=== PATIENT | male | born 1985 | race Caucasian/White ===

== ENCOUNTER 2017-02-24 12:08 | Emergency (ER) | payer SELFPAY ==
[~2017-02-24 12:08] MED LIST: CYCL5TAB PO; IBUP600T26 PO
[2017-02-24 12:23] VITALS: BP 127/81; TEMP 99.4; O2SAT 96
--- NOTE | 2017-02-24 12:33 | PD ---
HPI Chief Complaint: Alcohol/Drug Intoxication Time Seen by Provider: 12:15 Travel History International Travel<30 days: No Contact w/Intl Traveler<30days: No Traveled to known affect area: No History of Present Illness HPI The patient is a 31-year-old male who presents to the emergency department via police as a [place] act. The patient apparently was found [place] on [address], the police state that the patient appeared to fall asleep easily and had the lean against objects to stay upright. The patient states she did take some Xanax earlier today, he adamantly refuses any other illicit drug use or alcohol use. The patient denies any current physical complaints including headache, chest pain, shortness breath, nausea, vomiting, or abdominal pain. The patient states he does not want any blood work performed and does not want any imaging performed. The patient does not know why the police brought him to the emergency department. PFSH Past Medical History Narrative Medical DMDD Past Surgical History Narrative Surgical Noncontributory Social History Tobacco Use: Yes Substance Use: Yes Allergies-Medications (Allergen,Severity, Reaction): Coded Allergies: No Known Allergies (Unverified , 02/24/17) Reported Meds & Prescriptions Reported Meds & Active Scripts Active No Active Prescriptions or Reported Medications Review of Systems Except as stated in HPI: all other systems reviewed are Neg HENT: No: Lightheadedness Cardiovascular: No: Chest Pain or Discomfort Respiratory: No: Shortness of Breath Gastrointestinal: No: Nausea, Vomiting, Abdominal Pain Musculoskeletal: No: Weakness Neurologic: No: Dizziness Physical Exam Narrative GENERAL: Awake, alert, 31-year-old male appears his stated age and is in no acute respiratory distress. SKIN: Focused skin assessment warm/dry. HEAD: Atraumatic. Normocephalic. EYES: Pupils equal and round. Pupils are 3 mm bilateral and reactive. ENT: No nasal bleeding or discharge. Mucous membranes pink and moist. NECK: Trachea midline. No JVD. CARDIOVASCULAR: Regular, tachycardic with a heart rate in the 120s. RESPIRATORY: No accessory muscle use. Clear to auscultation. Breath sounds equal bilaterally. GASTROINTESTINAL: Abdomen soft, non-tender, nondistended. MUSCULOSKELETAL: No obvious deformities. No clubbing. No cyanosis. No edema. NEUROLOGICAL: Awake and alert. No obvious cranial nerve deficits. Motor grossly within normal limits. Normal speech. Nonfocal. Oriented 4. Follows commands without difficulty. PSYCHIATRIC: Appropriate mood and affect; insight and judgment normal. Data Data Last Documented VS Vital Signs Date Time Temp Pulse Resp B/P (MAP) Pulse Ox O2 Delivery O2 Flow Rate FiO2 02/24/17 12:23 99.4 127/81 (96) 96 Room Air Orders Orders Ed Discharge Order (02/24/17 13:04) MDM Medical Decision Making Medical Screen Exam Complete: Yes Emergency Medical Condition: Yes Medical Record Reviewed: Yes Differential Diagnosis Differential diagnosis includes substance ingestion, sympathomimetic crisis, alcohol intoxication, withdrawal, polysubstance abuse. Narrative Course Upon arrival the patient was awake, alert, and oriented 4. He would fall sleep , but was awakened easily and stated he did not want any laboratory evaluation performed. 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 The patient was tachycardic, I offered IV fluids, however, the patient does not want an IV established and was to be discharged. The patient is not a threat to himself, there is no suicidal or homicidal ideation, it does appear he ingested some type of substance but does not want to tell sweat that substance was, besides taking Xanax. The patient was advised she would be discharged if he could get a family member to drive him home. The patient agrees and understands. The patient was ambulatory in the emergency department, he was using profile language but was redirectable. The patient's friend arrived and picked him up in the waiting room at the emergency department. Diagnosis Primary Impression: Substance use disorder Patient Instructions: General Instructions Additional Instructions: Follow-up with your primary physician. Return if symptoms worsen or progress. Stop using drugs. Med/Other Pt SpecificInfo: No Change to Meds Scripts No Active Prescriptions or Reported Meds Disposition: 01 DISCHARGE HOME Condition: Stable Mike Kamara MD Feb 24, 2017 12:33
== END 2017-02-24 13:17 | disposition home or self-care (01) ==
LOC: NEPC 12:08
DX: F19.90 Other psychoactive substance use, unspecified, uncomplicated (principal); R00.0 Tachycardia, unspecified; Z72.0 Tobacco use
CPT/HCPCS: 99283